=== PATIENT | male | born 1965 | race Caucasian/White ===

== ENCOUNTER 2018-09-02 07:53 | Emergency (ER) | payer OTHER ==
[~2018-09-02] VITALS: Ht 180.3 cm; Wt 108.9 kg
--- OUTSIDE RECORDS SUMMARY | 2018-09-02 07:58 | XMS REPORT | Summary of Care ---
Author Author [facility] Organization [facility] Address Unknown Phone Unavailable Encounter ALAN Ferrera(RENE) [id number] Date(s): 12/10/16 - 12/10/16 [facility] [address] [facility], [address] Discharge Disposition: Home or Self Care Attending Physician: Alan Solorio MD Referring Physician: Alan Solorio MD Vital Signs Most recent to 1 oldest [Reference Range]: Height 178.56 cm (12/10/16 1:58 PM) Temperature Oral 98.1 DegF [96.4-99.1 DegF] (12/10/16 1:58 PM) Blood Pressure 164/104 mmHg [90-140/60-90 mmHg] *HI* (12/10/16 1:58 PM) Peripheral Pulse 97 bpm Rate [60-100 bpm] (12/10/16 1:58 PM) Weight 105.625 kg (12/10/16 1:58 PM) Body Mass Index 33.13 m2 (12/10/16 1:58 PM) Problem List Condition Effective Dates Status Health Status Informant Dilated aortic Active root(Confirmed) Diabetes(Confirmed) Active Hyperlipidemia(Confi Active rmed) Hypertension(Confirm Active ed) Testosterone Active deficiency(Confirmed ) Ischemic Active cardiomyopathy(Confi rmed) CARLIN (obstructive Active sleep apnea)(Confirmed) Allergies, Adverse Reactions, Alerts Substance Reaction Severity Status NKDA Active Medications Actos 4 mg, PO, Daily Start Date: 12/10/16 Status: Ordered carvedilol 12.5 mg oral tablet 12.5 mg=1 tab, PO, Q12H, # 60 tab, 6 Refill(s), Pharmacy: [facility]/pharmacy #6000 Start Date: 12/10/16 Status: Ordered glimepiride 4 mg oral tablet 8 mg=2 tab, PO, Daily Start Date: 12/10/16 Status: Ordered hydrochlorothiazide 25 mg oral tablet 25 mg=1 tab, PO, Daily, # 30 tab, 11 Refill(s), Pharmacy: [facility]/pharmacy #6000 Start Date: 12/10/16 Status: Ordered losartan 50 mg oral tablet 50 mg=1 tab, PO, Daily Start Date: 12/10/16 Status: Ordered metFORMIN 500 mg oral tablet 500 mg=1 tab, PO, BID Start Date: 12/10/16 Status: Ordered metoprolol 25 mg oral tablet, extended release 25 mg=1 tab, PO, Daily Start Date: 12/10/16 Stop Date: 12/10/16 Status: Discontinued multivitamin PO, Daily Start Date: 12/10/16 Status: Ordered omeprazole 40 mg oral delayed release capsule 40 mg=1 cap, PO, Daily Start Date: 12/10/16 Status: Ordered Results No data available for this section Immunizations No data available for this section Procedures No data available for this section Social History Social History Type Response Smoking Status Never smoker; Exposure to Tobacco Smoke Unable to obtain; Cigarette Smoking Last 365 Days No; Reg Smoking Cessation Counseling No Assessment and Plan No data available for this section
--- OUTSIDE RECORDS SUMMARY | 2018-09-02 07:58 | XMS REPORT | Summary of Care ---
Author Author [facility] Organization [facility] Address Unknown Phone Unavailable Encounter ALAN Ferrera(RENE) [id number] Date(s): 06/25/17 - 07/24/17 [facility] [address] [place] [address]- [phone] Discharge Disposition: Home or Self Care Attending Physician: Alan Solorio MD Referring Physician: Alan Solorio MD Vital Signs Most recent to 1 oldest [Reference Range]: Height 180.34 cm (06/25/17 4:05 PM) Weight 105.909 kg (06/25/17 4:05 PM) Body Mass Index 32.56 m2 (06/25/17 4:05 PM) Problem List Condition Effective Dates Status Health Status Informant Dilated aortic Active root(Confirmed) Diabetes(Confirmed) Active Shortness of Resolved breath(Confirmed) Hyperlipidemia(Confi Active rmed) Hypertension(Confirm Active ed) Testosterone Active deficiency(Confirmed ) Ischemic Active cardiomyopathy(Confi rmed) CARLIN (obstructive Active sleep apnea)(Confirmed) Allergies, Adverse Reactions, Alerts Substance Reaction Severity Status NKDA Active Medications lisinopril 20 mg oral tablet 40 mg=2 tab, PO, Daily, # 90 tab, 3 Refill(s) Start Date: 06/10/17 Stop Date: 08/01/17 Status: Discontinued Results No data available for this section Immunizations No data available for this section Procedures Procedure Date Related Diagnosis Body Site Status Cardiac catheterization, left heart Completed Echocardiogram Completed Social History Social History Type Response Smoking Status Never smoker; Exposure to Tobacco Smoke Unable to obtain; Cigarette Smoking Last 365 Days No; Reg Smoking Cessation Counseling No entered on: 09/15/17 Assessment and Plan No data available for this section
--- OUTSIDE RECORDS SUMMARY | 2018-09-02 07:58 | XMS REPORT | Summary of Care ---
Author Author [facility] Organization [facility] Address Unknown Phone Unavailable Encounter ALAN Ferrera(RENE) [id number] Date(s): 12/13/16 - 12/13/16 [facility] [address] [employer] provided by [facility] [place] [address]- Discharge Disposition: Home or Self Care Attending Physician: Alan Solorio MD Admitting Physician: Alan Solorio MD Referring Physician: Alan Solorio MD Vital Signs 1 2 3 Most recent to oldest [Reference Range]: 180.34 cm (12/13/16 10:08 AM) Height 97.6 DegF (12/13/16 10:30 AM) Temperature Oral [96.4-99.1 DegF] 153/85 mmHg *HI* (12/13/16 5:15 PM) 166/95 mmHg *HI* (12/13/16 5:00 PM) 163/92 mmHg *HI* (12/13/16 4:45 PM) Blood Pressure [90-140/60-90 mmHg] 105.455 kg (12/13/16 10:08 AM) Weight 32.43 m2 (12/13/16 10:08 AM) Body Mass Index Problem List Condition Effective Dates Status Health Status Informant Dilated aortic Active root(Confirmed) Diabetes(Confirmed) Active Shortness of Resolved breath(Confirmed) Hyperlipidemia(Confi Active rmed) Hypertension(Confirm Active ed) Testosterone Active deficiency(Confirmed ) Ischemic Active cardiomyopathy(Confi rmed) CARLIN (obstructive Active sleep apnea)(Confirmed) Allergies, Adverse Reactions, Alerts Substance Reaction Severity Status NKDA Active Medications No Known Medications Results BLOOD BANK RESULTS Most recent to 1 2 oldest [Reference Range]: ABO/Rh B NEG *Unknown* (12/13/16 10:13 AM) Antibody Scrn Negative (12/13/16 10:13 AM) ELECTROLYTES Most recent to 1 2 oldest [Reference Range]: Sodium Lvl [135-145 137 mEq/L mEq/L] (12/13/16 10:13 AM) Potassium Lvl 4.1 mEq/L [3.5-5.1 mEq/L] (12/13/16 10:13 AM) Chloride Lvl [95-109 101 mEq/L mEq/L] (12/13/16 10:13 AM) CO2 [24-32 mEq/L] 30 mEq/L (12/13/16 10:13 AM) AGAP [10.0-20.0 10.1 mEq/L mEq/L] (12/13/16 10:13 AM) CHEM PANEL Most recent to 1 2 oldest [Reference Range]: Creatinine Lvl 1.13 mg/dL [0.50-1.40 mg/dL] (12/13/16 10:13 AM) eGFR 74 mL/min/1.73m2 1 *NA* (12/13/16 10:13 AM) BUN [7-22 mg/dL] 13 mg/dL (12/13/16 10:13 AM) Glucose Lvl [70-99 183 mg/dL mg/dL] *HI* (12/13/16 10:13 AM) Calcium Lvl 9.1 mg/dL [8.5-10.5 mg/dL] (12/13/16 10:13 AM) Magnesium Lvl 1.8 mg/dL [1.8-2.4 mg/dL] (12/13/16 10:13 AM) 1Result Comment: The eGFR is calculated using the CKD-EPI formula. In most young, healthy individuals the eGFR will be >90 mL/min/1.73m2. The eGFR declines with age. An eGFR of 60-89 may be normal in some populations, particularly the elderly, for whom the CKD-EPI formula has not been extensively validated. Use of the eGFR is not recommended in the following populations: Individuals with unstable creatinine concentrations, including patients and those with serious co-morbid conditions. Patients with extremes in muscle mass or diet. The data above are obtained from the National Kidney Disease Education Program ( NKDEP) which additionally recommends that when the eGFR is used in patients with extremes of body mass index for purposes of drug dosing, the eGFR should be mul tiplied by the estimated BMI. HEMATOLOGY Most recent to 1 2 oldest [Reference Range]: WBC [3.7-10.4 K/CMM] 9.2 K/CMM (12/13/16 10:13 AM) RBC [4.70-6.10 6.18 M/CMM M/CMM] *HI* (12/13/16 10:13 AM) Hgb [14.0-18.0 g/dL] 15.5 g/dL (12/13/16 10:13 AM) Hct [42.0-54.0 %] 46.8 % (12/13/16 10:13 AM) MCV [80.0-94.0 fL] 75.7 fL *LOW* (12/13/16 10:13 AM) MCH [27.0-31.0 pg] 25.1 pg *LOW* (12/13/16 10:13 AM) MCHC [32.0-36.0 33.2 g/dL g/dL] (12/13/16 10:13 AM) RDW [11.5-14.5 %] 16.7 % *HI* (12/13/16 10:13 AM) Platelet [133-450 193 K/CMM K/CMM] (12/13/16 10:13 AM) MPV [7.4-10.4 fL] 8.1 fL (12/13/16 10:13 AM) Segs [45.0-75.0 %] 69.0 % (12/13/16 10:13 AM) Lymphocytes 23.0 % [20.0-40.0 %] (12/13/16 10:13 AM) Monocytes [2.0-12.0 6.2 % %] (12/13/16 10:13 AM) Eosinophils [0.0-4.0 0.9 % %] (12/13/16 10:13 AM) Basophils [0.0-1.0 0.9 % %] (12/13/16 10:13 AM) Segs-Bands # 6.3 K/CMM [1.5-8.1 K/CMM] (12/13/16 10:13 AM) Lymphocytes # 2.1 K/CMM [1.0-5.5 K/CMM] (12/13/16 10:13 AM) Monocytes # [0.0-0.8 0.6 K/CMM K/CMM] (12/13/16 10:13 AM) Eosinophils # 0.1 K/CMM [0.0-0.5 K/CMM] (12/13/16 10:13 AM) Basophils # [0.0-0.2 0.1 K/CMM K/CMM] (12/13/16 10:13 AM) Microcyte [None 1+ Seen] *ABN* (12/13/16 10:13 AM) PT [12.0-14.7 13.7 seconds seconds] (12/13/16 10:13 AM) INR [0.85-1.17] 1.03 (12/13/16 10:13 AM) POC Activated 193 seconds 322 seconds Clotting Time *NA* *NA* (12/13/16 1:28 PM) (12/13/16 11:43 AM) PTT [22.9-35.8 28.1 seconds seconds] (12/13/16 10:13 AM) Immunizations No data available for this section Procedures Procedure Date Related Diagnosis Body Site Cardiac catheterization, left heart Echocardiogram Social History Social History Type Response Smoking Status Never smoker; Exposure to Tobacco Smoke Unable to obtain; Cigarette Smoking Last 365 Days No; Reg Smoking Cessation Counseling No Assessment and Plan No data available for this section
--- OUTSIDE RECORDS SUMMARY | 2018-09-02 07:58 | XMS REPORT | Summary of Care ---
Author Author [facility] Organization [facility] Address Unknown Phone Unavailable Encounter ALAN Ferrera(RENE) [id number] Date(s): 12/15/17 - 12/15/17 [facility] [address] [facility], [address] Discharge Disposition: Home or Self Care Attending Physician: Alan Solorio MD Referring Physician: Alan Solorio MD Vital Signs Most recent to 1 oldest [Reference Range]: Height 178.31 cm (12/15/17 9:58 AM) Temperature Oral 97.7 DegF [96.4-99.1 DegF] (12/15/17 9:58 AM) Blood Pressure 136/82 mmHg [90-140/60-90 mmHg] (12/15/17 9:58 AM) Respiratory Rate 18 BRMIN [14-20 BRMIN] (12/15/17 9:58 AM) Peripheral Pulse 73 bpm Rate [60-100 bpm] (12/15/17 9:58 AM) Weight 107.045 kg (12/15/17 9:58 AM) Body Mass Index 33.67 m2 (12/15/17 9:58 AM) Problem List Condition Effective Dates Status Health Status Informant Dilated aortic Active root(Confirmed) Diabetes(Confirmed) Active Shortness of Resolved breath(Confirmed) Hyperlipidemia(Confi Active rmed) Hypertension(Confirm Active ed) Testosterone Active deficiency(Confirmed ) Ischemic Active cardiomyopathy(Confi rmed) CARLIN (obstructive Active sleep apnea)(Confirmed) Allergies, Adverse Reactions, Alerts Substance Reaction Severity Status NKDA Active Medications Entresto 49 mg-51 mg oral tablet 1 tab, PO, BID, # 60 tab, 3 Refill(s), Pharmacy: [facility]/pharmacy #[id number] Start Date: 12/15/17 Stop Date: 04/14/18 Status: Ordered Repatha SureClick 140 mg/mL subcutaneous solution 140 mg, SUB-Q, Q14D, # 2 pen(s), 12 Refill(s), Pharmacy: [facility]/pharmacy #[id number] Start Date: 12/15/17 Status: Ordered Results No data available for this section Immunizations No data available for this section Procedures Procedure Date Related Diagnosis Body Site Status Cardiac catheterization, left heart Completed Echocardiogram Completed Social History Social History Type Response Smoking Status Never smoker; Exposure to Tobacco Smoke Unable to obtain; Cigarette Smoking Last 365 Days No; Reg Smoking Cessation Counseling No entered on: 12/15/17 Assessment and Plan No data available for this section
--- OUTSIDE RECORDS SUMMARY | 2018-09-02 07:58 | XMS REPORT | Summary of Care ---
Author Author [facility] Organization [facility] Address Unknown Phone Unavailable Encounter ALAN Ferrera(RENE) [id number] Date(s): 09/18/17 - 09/18/[address] [phone] Encounter Diagnosis Aortic ectasia, unspecified site (Final) - 09/24/17 Atherosclerosis of aorta (Final) - Cyst of kidney, acquired (Final) - Unilateral inguinal hernia, without obstruction or gangrene, not specified as re current (Final) - Discharge Disposition: Home or Self Care Attending Physician: Alan Solorio MD Admitting Physician: Alan Solorio MD Referring Physician: Alan Solorio MD Vital Signs No data available for this section Problem List Condition Effective Dates Status Health Status Informant Dilated aortic Active root(Confirmed) Diabetes(Confirmed) Active Shortness of Resolved breath(Confirmed) Hyperlipidemia(Confi Active rmed) Hypertension(Confirm Active ed) Testosterone Active deficiency(Confirmed ) Ischemic Active cardiomyopathy(Confi rmed) CARLIN (obstructive Active sleep apnea)(Confirmed) Allergies, Adverse Reactions, Alerts Substance Reaction Severity Status NKDA Active Medications No data available for this section Results CHEM PANEL Most recent to 1 oldest [Reference Range]: eGFR 63 mL/min/1.73m2 1 *NA* (09/18/17 2:47 PM) POC Creatinine 1.3 mg/dL [0.5-1.4 mg/dL] (09/18/17 2:47 PM) 1Result Comment: The eGFR is calculated using [...] be mul tiplied by the estimated BMI. Immunizations No data available for this section [...]
--- OUTSIDE RECORDS SUMMARY | 2018-09-02 07:58 | XMS REPORT | Summary of Care ---
Author Author [facility] Organization [facility] Address Unknown Phone Unavailable Encounter ALAN Ferrera(FIN) [id number] Date(s): 01/28/17 - 01/29/17 [facility] [address] [facility], [address] Vital Signs No data available for this section Problem List Condition Effective Dates Status Health Status Informant Dilated aortic Active root(Confirmed) Diabetes(Confirmed) Active Shortness of Resolved breath(Confirmed) Hyperlipidemia(Confi Active rmed) Hypertension(Confirm Active ed) Testosterone Active deficiency(Confirmed ) Ischemic Active cardiomyopathy(Confi rmed) CARLIN (obstructive Active sleep apnea)(Confirmed) Allergies, Adverse Reactions, Alerts Substance Reaction Severity Status NKDA Active Medications Repatha 140 mg/mL subcutaneous solution 140 mg, SUB-Q, Q14D, # 2 syr, 4 Refill(s), [facility]acy: [id number] Start Date: 01/28/17 Stop Date: 04/23/18 Status: Ordered Results No data available for [...]
--- OUTSIDE RECORDS SUMMARY | 2018-09-02 07:58 | XMS REPORT | Continuity of Care Document ---
Author Author [facility] Interface Address Unknown Phone Unavailable Problems Problem Status Onset Date Classification Date Reported Comments Source FOLLOW UP Active 12/15/2017 [facility] Aortic ectasia, unspecified site 09/25/2017 12/25/2017 [facility] Other cardiomyopathies 09/20/2017 12/22/2017 [facility] ASCENDING AORTIC DILATION Active 09/16/2017 [facility] 3 MONTHS Active 06/09/2017 [facility] ORDER Active 03/14/2017 [facility] ABN NUCLEAR STRESS TEST Active 12/11/2016 [facility] CCL/LHC, SCA/DX: ABN NUCLEAR STRESS TEST Active 12/11/2016 [facility] ENLARGED HEART Active 12/03/2016 [facility] Dilated aortic root Active Problem 12/30/2017 [facility] Diabetes Active Problem 12/30/2017 [facility] Shortness of breath Resolved Problem 12/30/2017 [facility] Hyperlipidemia Active Problem 12/30/2017 [facility] Hypertension Active Problem 12/30/2017 [facility] Testosterone deficiency Active Problem 12/30/2017 [facility] Ischemic cardiomyopathy Active Problem 12/30/2017 [facility] CARLIN (<span ID="[id number]">Confirmed</span>) Active Problem 12/30/2017 [facility] 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 Active Problem 12/30/2017 [facility] Atherosclerosis of aorta 12/25/2017 [facility] Cyst of kidney, acquired 12/25/2017 [facility] Unilateral inguinal hernia, without obstruction or gangrene, not specified as recurrent 12/25/2017 [facility] Atherosclerotic heart disease of [place] coronary artery without angina pectoris 12/22/2017 [facility] Hyperlipidemia, unspecified 12/22/2017 [facility] Obstructive sleep apnea (pediatric) 12/22/2017 [facility] Type 2 diabetes mellitus without complications 12/22/2017 [facility] Hypertensive heart disease with heart failure 12/22/2017 [facility] Chronic systolic heart failure 12/22/2017 [facility] Medications Medication Details Route Status Patient Instructions Ordering Provider Order Date Source sacubitril 49 MG / valsartan 51 MG Oral Tablet [Entresto] 1 tab, PO, BID, # 60 tab, 3 Refill(s), Pharmacy: [facility]/pharmacy #[id number] Active 12/15/2017 [facility] 1 ML evolocumab 140 MG/ML Auto-Injector [Repatha] 140 mg, SUB-Q, Q14D, # 2 pen(s), 12 Refill(s), Pharmacy: [facility]/pharmacy #6000 Active 12/15/2017 [facility] sacubitril 24 MG / valsartan 26 MG Oral Tablet [Entresto] 1 tab, PO, BID, # 60 tab, 3 Refill(s), [facility] No Longer Active 09/22/2017 [facility] pravastatin 20 mg oral tablet 20 mg=1 tab, PO, Bedtime, # 90 tab, 1 Refill(s), [facility] No Longer Active 09/15/2017 [facility] Co-Q10 100 mg oral capsule 100 mg=1 cap, PO, Daily, # 30 cap, 0 Refill(s) Active 09/15/2017 [facility] lisinopril 20 mg oral tablet 40 mg=2 tab, PO, Daily, # 180 tab, 1 Refill(s), [facility] Active [facility]/01/[facility] lisinopril 20 mg oral tablet 40 mg=2 tab, PO, Daily, # 90 tab, 3 Refill(s) No Longer Active 06/10/2017 [facility] Aspirin 81 mg, PO, Daily, 0 Refill(s) Active 06/09/2017 [facility] carvedilol 25 mg oral tablet 25 mg=1 tab, PO, BID, # 180 tab, 2 Refill(s), [facility] Active 03/19/2017 [facility] 1 ML evolocumab 140 MG/ML Prefilled Syringe [Repatha] 140 mg, SUB-Q, Q14D, # 2 syr, 4 Refill(s), Pharmacy: [facility]/pharmacy #6000 Active 01/28/2017 [facility] carvedilol 25 mg oral tablet 25 mg=1 tab, PO, BID, # 60 tab, 2 Refill(s), [facility] Active 12/30/2016 [facility] Hydrochlorothiazide 25 MG Oral Tablet 25 mg=1 tab, PO, Daily, # 30 tab, 11 Refill(s), [facility] Active 12/10/2016 [facility] carvedilol 12.5 mg oral tablet 12.5 mg=1 tab, PO, Q12H, # 60 tab, 6 Refill(s), [facility] Active 12/10/2016 [facility] omeprazole 40 mg oral delayed release capsule 40 mg=1 cap, PO, Daily Active 12/10/2016 [facility] Metformin hydrochloride 500 MG Oral Tablet 500 mg=1 tab, PO, BID Active 12/10/2016 [facility] glimepiride 4 mg oral tablet 8 mg=2 tab, PO, Daily Active 12/10/2016 [facility] metoprolol 25 mg oral tablet, extended release 25 mg=1 tab, PO, Daily Inactive 12/10/2016 [facility] losartan 50 mg oral tablet 50 mg=1 tab, PO, Daily Active 12/10/2016 [facility] multivitamin PO, Daily Active 12/10/2016 [facility] Actos 4 mg, PO, Daily Active 12/10/2016 [facility] Allergies, Adverse Reactions, Alerts Substance Category Reaction Severity Reaction type Status Date Reported Comments Source Immunizations Immunization Date Given Site Status Last Updated Comments Source Results Order Name Results Value Reference Range Date Interpretation Comments Source CHEM PANEL eGFR 63 mL/min/1.73m2 09/18/2017 Result Comment: The eGFR is calculated using the [...] from the National Kidney Disease Education Program (NKDEP) which additionally recommends that when the eGFR is used in patients with extremes of body mass index for purposes of drug dosing, the eGFR should be multiplied by the estimated BMI. [facility] CHEM PANEL POC Creatinine 1.3 mg/dL 0.5 - 1.4 09/18/2017 [facility] Chest/Abd/Pelvis CTA Chest/Abd/Pelvis CTA EXAM: CTA CHEST WITH CONTRAST EXAM: CTA ABDOMEN AND PELVIS WITH CONTRAST DATE: 09/18/2017 2:07 PM CDT INDICATION: 51-year-old male with reported aortic dilatation. COMPARISON: None TECHNIQUE: Volumetric CT acquisition of the chest, abdomen and pelvis during the intravenous infusion of contrast in arterial and venous phase. Axial, coronal and sagittal reconstructions, along with MIP reconstructions, are created at the acquisition workstation. IV contrast: 100 mL of Visipaque 320 Oral contrast: None. DLP: 2440 mGy-cm UT SECTION: VIR FINDINGS: AORTA: The aorta is measures: 3.6 cm at the ascending aorta at the level of the pulmonary artery, 3.1 cm at the mid arch, 2.7 cm at the descending aorta at the level of the main pulmonary artery, 2.7 cm at the level of the aortic hiatus, 2.0 cm at the level of the renal arteries, and 1.9 cm just proximal to the iliac bifurcation. No significant atherosclerotic plaque. The branching pattern is unremarkable. No dissection or pseudoaneurysm. Right pelvis: Right common iliac artery: 1.1 cm Right external iliac artery: 0.9 cm Right common femoral artery: 1.0 cm Left pelvis: Left common iliac artery: 1.0 cm Left external iliac artery: 0.9 cm Left common femoral artery: 1.0 cm Minimal atherosclerotic calcification of the aortic arch and infrarenal abdominal aorta. Mild calcification of the aortic root. No flow limiting stenosis. The branching pattern is unremarkable. No dissection or pseudoaneurysm. The origins of the bilateral subclavian, common carotid, and vertebral and right brachiocephalic arteries are patent without flow-limiting stenosis. The origins of the celiac trunk, SMA, DENISE and bilateral renal arteries are patent. No flow-limiting stenosis. CHEST: The visualized portions of the lower neck are unremarkable. Lungs and pleura: No pleural effusion or pneumothorax. No focal consolidation. Hearth and mediastinum: Heart size is within normal limits. No pericardial effusion. ABDOMEN AND PELVIS: The liver, gallbladder, biliary system, pancreas, and adrenals are unremarkable. Calcified granulomas within spleen parenchyma. Incidental note of a splenule. No hydronephrosis or hydroureter. Kidneys enhance symmetrically. 1.9 cm exophytic simple cyst at the superior pole of the left kidney. The bladder and reproductive organs are unremarkable. No bowel obstruction. Small left fat-containing inguinal hernia and small fat-containing umbilical hernia. No acute bony abnormality. Right proximal femoral hardware is partially visualized. Heterotopic ossification at the right iliac crest and right greater trochanter. IMPRESSION: 1. The ascending aorta measures a maximum of 3.6 cm in diameter. No dissection. Aortic measurements as above. 2. Minimal atherosclerotic calcification of the aortic arch and infrarenal abdominal aorta. 3. Simple left kidney cyst. 4. Small left fat-containing inguinal hernia. 09/18/2017 - - This report was dictated by a Clinical Information Systems Director/Fellow. I have personally reviewed the images as well as the Resident's interpretation and agree with the findings. Read by: Butch Jhaveri MD Resident: Butch Jhaveri MD Dictated Date/time: 09/18/17 16:36 Electronically Signed by: Kimberly Brown MD 09/19/17 15:27 FINAL REPORT [facility] HEMATOLOGY POC Activated Clotting Time 193 s 12/13/2016 [facility] HEMATOLOGY POC Activated Clotting Time 322 s 12/13/2016 [facility] BLOOD BANK RESULTS Antibody Scrn Negative (12/13/16 10:13 AM) 12/13/2016 [facility] BLOOD BANK RESULTS ABO/Rh B NEG 12/13/2016 [facility] CHEM PANEL Magnesium Lvl 1.8 mg/dL 1.8 - 2.4 12/13/2016 [facility] ELECTROLYTES AGAP 10.1 meq/L 10.0 - 20.0 12/13/2016 [facility] ELECTROLYTES eGFR 74 mL/min/1.73m2 12/13/2016 Result Comment: The eGFR is calculated using the [...] from the National Kidney Disease Education Program (NKDEP) which additionally recommends that when the eGFR is used in patients with extremes of body mass index for purposes of drug dosing, the eGFR should be multiplied by the estimated BMI. [facility] ELECTROLYTES Sodium Lvl 137 meq/L 135 - 145 12/13/2016 [facility] ELECTROLYTES Chloride Lvl 101 meq/L 95 - 109 12/13/2016 [facility] ELECTROLYTES Potassium Lvl 4.1 meq/L 3.5 - 5.1 12/13/2016 [facility] ELECTROLYTES Calcium Lvl 9.1 mg/dL 8.5 - 10.5 12/13/2016 [facility] ELECTROLYTES CO2 30 meq/L 24 - 32 12/13/2016 [facility] ELECTROLYTES BUN 13 mg/dL 7 - 22 12/13/2016 [facility] ELECTROLYTES Glucose Lvl 183 mg/dL 70 - 99 12/13/2016 [facility] ELECTROLYTES Creatinine Lvl 1.13 mg/dL 0.50 - 1.40 12/13/2016 [facility] HEMATOLOGY Monocytes 6.2 % 2.0 - 12.0 12/13/2016 [facility] HEMATOLOGY Microcyte 1+ *ABN* (12/13/16 10:13 AM) None Seen 12/13/2016 [facility] HEMATOLOGY Segs-Bands # 6.3 K/CMM 1.5 - 8.1 12/13/2016 [facility] HEMATOLOGY Lymphocytes 23.0 % 20.0 - 40.0 12/13/2016 [facility] HEMATOLOGY Basophils 0.9 % 0.0 - 1.0 12/13/2016 [facility] HEMATOLOGY Eosinophils 0.9 % 0.0 - 4.0 12/13/2016 [facility] HEMATOLOGY Segs 69.0 % 45.0 - 75.0 12/13/2016 [facility] HEMATOLOGY Lymphocytes # 2.1 K/CMM 1.0 - 5.5 12/13/2016 [facility] HEMATOLOGY Eosinophils # 0.1 K/CMM 0.0 - 0.5 12/13/2016 [facility] HEMATOLOGY Basophils # 0.1 K/CMM 0.0 - 0.2 12/13/2016 [facility] HEMATOLOGY Monocytes # 0.6 K/CMM 0.0 - 0.8 12/13/2016 [facility] HEMATOLOGY INR 1.03 0.85 - 1.17 12/13/2016 [facility] HEMATOLOGY PT 13.7 s 12.0 - 14.7 12/13/2016 [facility] HEMATOLOGY PTT 28.1 s 22.9 - 35.8 12/13/2016 [facility] HEMATOLOGY RBC 6.18 M/CMM 4.70 - 6.10 12/13/2016 [facility] HEMATOLOGY WBC 9.2 K/CMM 3.7 - 10.4 12/13/2016 [facility] HEMATOLOGY Hgb 15.5 g/dL 14.0 - 18.0 12/13/2016 [facility] HEMATOLOGY Hct 46.8 % 42.0 - 54.0 12/13/2016 [facility] HEMATOLOGY RDW 16.7 % 11.5 - 14.5 12/13/2016 [facility] HEMATOLOGY Platelet 193 K/CMM 133 - 450 12/13/2016 [facility] HEMATOLOGY MCHC 33.2 g/dL 32.0 - 36.0 12/13/2016 [facility] HEMATOLOGY MPV 8.1 fL 7.4 - 10.4 12/13/2016 [facility] HEMATOLOGY MCH 25.1 pg 27.0 - 31.0 12/13/2016 [facility] HEMATOLOGY MCV 75.7 fL 80.0 - 94.0 12/13/2016 [facility] Vital Signs Vital Sign Value Date Comments Source Height 178.31 cm 12/15/2017 [facility] Temperature Oral (F) 97.7 F 12/15/2017 [facility] Respitory Rate 18 12/15/2017 [facility] Heart Rate 73 12/15/2017 [facility] Systolic (mm Hg) 136 12/15/2017 [facility] Diastolic (mm Hg) 82 12/15/2017 [facility] Weight 107.045 12/15/2017 [facility] BMI Calculated 33.67 12/15/2017 [facility] Weight 106.165 09/15/2017 [facility] BMI Calculated 33.68 09/15/2017 [facility] Height 177.55 cm 09/15/2017 [facility] Heart Rate 74 09/15/2017 [facility] Respitory Rate 16 09/15/2017 [facility] Systolic (mm Hg) 149 09/15/2017 [facility] Diastolic (mm Hg) 95 09/15/2017 [facility] Temperature Oral (F) 97.7 F 09/15/2017 [facility] Height 180.34 cm 06/25/2017 [facility] BMI Calculated 32.56 06/25/2017 [facility] Weight 105.909 06/25/2017 [facility] Temperature Oral (F) 98.0 F 06/09/2017 [facility] Height 179.32 cm 06/09/2017 [facility] BMI Calculated 32.95 06/09/2017 [facility] Weight 105.966 06/09/2017 [facility] Heart Rate 70 06/09/2017 [facility] Systolic (mm Hg) 160 06/09/2017 [facility] Diastolic (mm Hg) 93 06/09/2017 [facility] Height 179.32 cm 06/09/2017 [facility] Weight 105.966 06/09/2017 [facility] BMI Calculated 32.95 06/09/2017 [facility] Temperature Oral (F) 98.0 F 06/09/2017 [facility] Systolic (mm Hg) 139 06/09/2017 [facility] Diastolic (mm Hg) 95 06/09/2017 [facility] Respitory Rate 18 06/09/2017 [facility] Heart Rate 70 06/09/2017 [facility] BMI Calculated 32.56 05/26/2017 [facility] Weight 105.909 05/26/2017 [facility] Height 180.34 cm 05/26/2017 [facility] Weight 105.455 03/14/2017 [facility] BMI Calculated 32.43 03/14/2017 [facility] Height 180.34 cm 03/14/2017 [facility] Height 180.34 cm 01/20/2017 [facility] Weight 105.455 01/20/2017 [facility] BMI Calculated 32.43 01/20/2017 [facility] Weight 107.273 12/30/2016 [facility] BMI Calculated 32.98 12/30/2016 [facility] Height 180.34 cm 12/30/2016 [facility] Heart Rate 69 12/30/2016 [facility] Respitory Rate 16 12/30/2016 [facility] Temperature Oral (F) 98.2 F 12/30/2016 [facility] Systolic (mm Hg) 148 12/30/2016 [facility] Diastolic (mm Hg) 98 12/30/2016 [facility] Systolic (mm Hg) 153 12/13/2016 [facility] Diastolic (mm Hg) 85 12/13/2016 [facility] Systolic (mm Hg) 166 12/13/2016 [facility] Diastolic (mm Hg) 95 12/13/2016 [facility] Systolic (mm Hg) 163 12/13/2016 [facility] Diastolic (mm Hg) 92 12/13/2016 [facility] Temperature Oral (F) 97.6 F 12/13/2016 [facility] BMI Calculated 32.43 12/13/2016 [facility] Height 180.34 cm 12/13/2016 [facility] Weight 105.455 12/13/2016 [facility] Height 178.56 cm 12/10/2016 [facility] BMI Calculated 33.13 12/10/2016 [facility] Weight 105.625 12/10/2016 [facility] Systolic (mm Hg) 164 12/10/2016 [facility] Diastolic (mm Hg) 104 12/10/2016 [facility] Temperature Oral (F) 98.1 F 12/10/2016 [facility] Heart Rate 97 12/10/2016 [facility] Encounters Location Location Details Encounter Type Encounter Number Reason For Visit Attending Provider ADM Date DC Date Status Source [facility] Outpatient [id number] Alan Solorio 12/10/2016 12/11/2016 [facility] Bedded Outpatient [id number] Alan Solorio 12/13/2016 12/13/2016 [facility] Outpatient [id number] Alan Solorio 12/30/2016 12/31/2016 [facility] Recurring [id number] Alan Solorio 01/20/2017 02/19/2017 [facility] Phone Message [id number] 01/28/2017 01/30/2017 [facility] Recurring [id number] Anatierra Solorio 03/14/2017 04/30/2017 [facility] Phone Message [id number] 03/19/2017 03/21/2017 [facility] Recurring [id number] Anatierra Solorio 05/26/2017 06/25/2017 [facility] Outpatient [id number] Austinwaedentierra Solorio 06/09/2017 06/10/2017 [facility] Recurring [id number] Jhonedentierra Solorio 06/25/2017 07/25/2017 [facility] Phone Message [id number] 07/11/2017 07/13/2017 [facility] Recurring [id number] Austindajuantierra Solorio 07/25/2017 07/25/2017 [facility] Outpatient [id number] Austinwaedentierra Solorio 09/15/2017 09/16/2017 [facility] Outpatient [id number] Austindajuantierra Solorio 09/18/2017 09/19/2017 [facility] Phone Message [id number] 09/22/2017 09/24/2017 [facility] Outpatient [id number] Alan Solorio 12/15/2017 12/16/2017 [facility] Procedures Procedure Code Date Perfomer Comments Source Cardiac catheterization, left heart [id number] [facility] Echocardiogram [id number] [facility] Cardiac catheterization, left heart [id number] [facility] Echocardiogram [id number] [facility] Cardiac catheterization, left heart [id number] [facility] Echocardiogram [id number] [facility]
--- OUTSIDE RECORDS SUMMARY | 2018-09-02 07:58 | XMS REPORT | Summary of Care ---
Author Author [facility] Organization [facility] Address Unknown Phone Unavailable Encounter ALAN Ferrera(RENE) [id number] Date(s): 06/25/17 - 07/24/17 [facility] [address] [place] [address]- [phone] Discharge Disposition: Home or Self Care Attending [...]
--- OUTSIDE RECORDS SUMMARY | 2018-09-02 07:58 | XMS REPORT | Summary of Care ---
Author Author [facility] Organization [facility] Address Unknown Phone Unavailable Encounter ALAN Ferrera(RENE) [id number] Date(s): 07/11/17 - 07/12/[address] [facility] [address], [address] Vital Signs No data available for [...] 180 tab, 1 Refill(s), [id number] Start Date: 08/01/17 Status: Ordered Results No data available for [...]
--- OUTSIDE RECORDS SUMMARY | 2018-09-02 07:58 | XMS REPORT | Summary of Care ---
Author Author [facility] Organization [facility] Address Unknown Phone Unavailable Encounter ALAN Ferrera(RENE) [id number] Date(s): 06/09/17 - 06/09/17 [facility] [address] [facility], [address] Discharge Disposition: Home or Self Care Attending Physician: Alan Solorio MD Referring Physician: Alan Solorio MD Vital Signs Most recent to 1 2 oldest [Reference Range]: Height 179.32 cm 179.32 cm (06/09/17 12:30 PM) (06/09/17 12:25 PM) Temperature Oral 98.0 DegF 98.0 DegF [96.4-99.1 DegF] (06/09/17 12:30 PM) (06/09/17 12:25 PM) Blood Pressure 160/93 mmHg 139/95 mmHg [90-140/60-90 mmHg] *HI* (06/09/17 12:25 PM) (06/09/17 12:30 PM) Respiratory Rate 18 BRMIN [14-20 BRMIN] (06/09/17 12:25 PM) Peripheral Pulse 70 bpm 70 bpm Rate [60-100 bpm] (06/09/17 12:30 PM) (06/09/17 12:25 PM) Weight 105.966 kg 105.966 kg (06/09/17 12:30 PM) (06/09/17 12:25 PM) Body Mass Index 32.95 m2 32.95 m2 (06/09/17 12:30 PM) (06/09/17 12:25 PM) Problem List Condition Effective Dates Status Health Status Informant Dilated aortic Active root(Confirmed) Diabetes(Confirmed) Active Shortness of Resolved breath(Confirmed) Hyperlipidemia(Confi Active rmed) Hypertension(Confirm Active ed) Testosterone Active deficiency(Confirmed ) Ischemic Active cardiomyopathy(Confi rmed) CARLIN (obstructive Active sleep apnea)(Confirmed) Allergies, Adverse Reactions, Alerts Substance Reaction Severity Status NKDA Active Medications aspirin 81 mg, PO, Daily, 0 Refill(s) Start Date: 06/09/17 Status: Ordered Results No data available for [...]
--- OUTSIDE RECORDS SUMMARY | 2018-09-02 07:58 | XMS REPORT | Summary of Care ---
Author Author [facility] Organization [facility] Address Unknown Phone Unavailable Encounter ALAN Ferrera(RENE) [id number] Date(s): 05/26/17 - 06/24/17 [facility] [address] [place] [address]- Discharge Disposition: Home or Self Care Attending Physician: Alan Solorio MD Referring Physician: Alan Solorio MD Vital Signs Most recent to 1 oldest [Reference Range]: Height 180.34 cm (05/26/17 5:06 PM) Weight 105.909 kg (05/26/17 5:06 PM) Body Mass Index 32.56 m2 (05/26/17 5:06 PM) Problem List Condition Effective Dates Status Health Status Informant Dilated aortic Active root(Confirmed) Diabetes(Confirmed) Active Shortness of Resolved breath(Confirmed) Hyperlipidemia(Confi Active rmed) Hypertension(Confirm Active ed) Testosterone Active deficiency(Confirmed ) Ischemic Active cardiomyopathy(Confi rmed) CARLIN (obstructive Active sleep apnea)(Confirmed) Allergies, Adverse Reactions, Alerts Substance Reaction Severity Status NKDA Active Medications No data available for this section Results No data available for this section [...]
--- OUTSIDE RECORDS SUMMARY | 2018-09-02 07:58 | XMS REPORT | Summary of Care ---
Author Author [facility] Organization [facility] Address Unknown Phone Unavailable Encounter ALAN Ferrera(RENE) [id number] Date(s): 03/19/17 - 03/20/17 [facility] [address] [facility] [facility], [address] Vital Signs No data available for [...]
--- OUTSIDE RECORDS SUMMARY | 2018-09-02 07:58 | XMS REPORT | Summary of Care ---
Author Author [facility] Organization [facility] Address Unknown Phone Unavailable Encounter ALAN Ferrera(RENE) [id number] Date(s): 03/14/17 - 04/29/17 [facility] [address] [place] [address]- Discharge Disposition: Home or Self Care Attending Physician: Alan Solorio MD Referring Physician: Alan Solorio MD Vital Signs Most recent to 1 oldest [Reference Range]: Height 180.34 cm (03/14/17 12:16 PM) Weight 105.455 kg (03/14/17 12:16 PM) Body Mass Index 32.43 m2 (03/14/17 12:16 PM) Problem List Condition Effective Dates Status Health Status Informant Dilated aortic Active root(Confirmed) Diabetes(Confirmed) Active Shortness of Resolved breath(Confirmed) Hyperlipidemia(Confi Active rmed) Hypertension(Confirm Active ed) Testosterone Active deficiency(Confirmed ) Ischemic Active cardiomyopathy(Confi rmed) CARLIN (obstructive Active sleep apnea)(Confirmed) Allergies, Adverse Reactions, Alerts Substance Reaction Severity Status NKDA Active Medications carvedilol 25 mg oral tablet 25 mg=1 tab, PO, BID, # 180 tab, 2 Refill(s), Pharmacy: [facility]/pharmacy #[id number] Start Date: 03/19/17 Stop Date: 12/14/17 Status: Ordered Results No data available for [...]
--- OUTSIDE RECORDS SUMMARY | 2018-09-02 07:58 | XMS REPORT | Summary of Care ---
Author Author [facility] Organization [facility] Address Unknown Phone Unavailable Encounter HQ Maisha(FIN) [id number] Date(s): 07/25/17 - 07/25/17 [facility] [address] [place] [address]- [phone] Attending Physician: Alan Solorio MD Referring Physician: [...]
--- OUTSIDE RECORDS SUMMARY | 2018-09-02 07:58 | XMS REPORT | Summary of Care ---
Author Author [facility] Organization [facility] Address Unknown Phone Unavailable Encounter ALAN Ferrera(RENE) [id number] Date(s): 12/30/16 - 12/30/16 [facility] [address], [address] Discharge Disposition: Home or Self Care Attending Physician: Alan Solorio MD Referring Physician: Alan Solorio MD Vital Signs Most recent to 1 oldest [Reference Range]: Height 180.34 cm (12/30/16 1:49 PM) Temperature Oral 98.2 DegF [96.4-99.1 DegF] (12/30/16 1:49 PM) Blood Pressure 148/98 mmHg [90-140/60-90 mmHg] *HI* (12/30/16 1:49 PM) Respiratory Rate 16 BRMIN [14-20 BRMIN] (12/30/16 1:49 PM) Peripheral Pulse 69 bpm Rate [60-100 bpm] (12/30/16 1:49 PM) Weight 107.273 kg (12/30/16 1:49 PM) Body Mass Index 32.98 m2 (12/30/16 1:49 PM) Problem List Condition Effective Dates Status [...] BID, # 60 tab, 2 Refill(s), Pharmacy: [id number] Start Date: 12/30/16 Status: Ordered Results No data available for [...]
--- OUTSIDE RECORDS SUMMARY | 2018-09-02 07:58 | XMS REPORT | Summary of Care ---
Author Author [facility] Organization [facility] Address Unknown Phone Unavailable Encounter ALAN Ferrera(RENE) [id number] Date(s): 09/15/17 - 09/15/17 [facility] [address], [address] [place] [address]- Encounter Diagnosis Other cardiomyopathies (Final) - 09/19/17 Atherosclerotic heart disease of nome coronary artery without angina pectoris (Final) - Hyperlipidemia, unspecified (Final) - Obstructive sleep apnea (adult) (pediatric) (Final) - Type 2 diabetes mellitus without complications (Final) - Hypertensive heart disease with heart failure (Final) - Chronic systolic (congestive) heart failure (Final) - Discharge Disposition: Home or Self Care Attending Physician: Alan Solorio MD Referring Physician: Alan Solorio MD Vital Signs Most recent to 1 oldest [Reference Range]: Height 177.55 cm (09/15/17 11:05 AM) Temperature Oral 97.7 DegF [96.4-99.1 DegF] (09/15/17 11:05 AM) Blood Pressure 149/95 mmHg [90-140/60-90 mmHg] *HI* (09/15/17 11:05 AM) Respiratory Rate 16 BRMIN [14-20 BRMIN] (09/15/17 11:05 AM) Peripheral Pulse 74 bpm Rate [60-100 bpm] (09/15/17 11:05 AM) Weight 106.165 kg (09/15/17 11:05 AM) Body Mass Index 33.68 m2 (09/15/17 11:05 AM) Problem List Condition Effective Dates Status Health Status Informant Dilated aortic Active root(Confirmed) Diabetes(Confirmed) Active Shortness of Resolved breath(Confirmed) Hyperlipidemia(Confi Active rmed) Hypertension(Confirm Active ed) Testosterone Active deficiency(Confirmed ) Ischemic Active cardiomyopathy(Confi rmed) CARLIN (obstructive Active sleep apnea)(Confirmed) Allergies, Adverse Reactions, Alerts Substance Reaction Severity Status NKDA Active Medications Co-Q10 100 mg oral capsule 100 mg=1 cap, PO, Daily, # 30 cap, 0 Refill(s) Start Date: 09/15/17 Status: Ordered pravastatin 20 mg oral tablet 20 mg=1 tab, PO, Bedtime, # 90 tab, 1 Refill(s), Pharmacy: [facility][id number] Start Date: 09/15/17 Stop Date: 12/15/17 Status: Discontinued Results No data available for [...]
--- OUTSIDE RECORDS SUMMARY | 2018-09-02 07:58 | XMS REPORT | Summary of Care ---
Author Author [facility] Organization [facility] Address Unknown Phone Unavailable Encounter ALAN Ferrera(RENE) [id number] Date(s): 01/20/17 - 02/18/17 [facility] [address] [place] [address]- Discharge Disposition: Home or Self Care Attending Physician: Alan Solorio MD Referring Physician: Alan Solorio MD Vital Signs Most recent to 1 oldest [Reference Range]: Height 180.34 cm (01/20/17 5:17 PM) Weight 105.455 kg (01/20/17 5:17 PM) Body Mass Index 32.43 m2 (01/20/17 5:17 PM) Problem List Condition Effective Dates Status [...]
--- OUTSIDE RECORDS SUMMARY | 2018-09-02 07:59 | XMS REPORT | Summary of Care ---
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) Diabetes(Confirmed) Active Shortness of Resolved breath(Confirmed) Hyperlipidemia(Confi Active rmed) Hyperlipidemia(Confi Active rmed) Hypertension(Confirm Active ed) Testosterone Active deficiency(Confirmed ) Ischemic Active cardiomyopathy(Confi rmed) CARLIN (obstructive Active sleep apnea)(Confirmed) Allergies, Adverse Reactions, Alerts Substance Reaction Severity Status NKDA Active Medications Entresto 24 mg-26 mg oral tablet 1 tab, PO, BID, # 60 tab, 3 Refill(s), Pharmacy: [facility]/pharmacy #[id number] Start Date: 09/22/17 Stop Date: 12/15/17 Status: Discontinued Results No [...]
== END 2018-09-02 08:59 | disposition home or self-care (01) ==
LOC: FSED 07:53
DX: R50.9 Fever, unspecified (principal); R05 Cough; B34.9 Viral infection, unspecified; I10 Essential (primary) hypertension; E11.9 Type 2 diabetes mellitus without complications; E78.00 Pure hypercholesterolemia, unspecified
CPT/HCPCS: 87400; 99282